=== PATIENT | male | born 1960 | race Caucasian/White ===

== ENCOUNTER 2025-06-01 06:19 | Day surgery (SDC) | payer OTHER, BC ==
[2025-05-26 17:03] VITALS: BMI 27.3
[2025-06-01] MEDS ORDERED: ERYTHROMYCIN 0.5% OPHTHALMIC OINTMENT 3.5 GM TUBE ONE (07:24)
[2025-06-01] MEDS ORDERED: TETRACAINE 0.5% OPHTH SOLN 2 ML BOTTLE ONE (07:25)
[2025-06-01] MEDS ORDERED: LIDOCAINE 1%/EPI 1:100000 (20 ML MULTI DOSE VIAL) ONE (07:25)
[2025-06-01] MEDS ORDERED: BUPIVACAINE HCL/PF 0.5% (5MG/ML) 10 ML VIAL ONE (07:25)
[2025-06-01] MEDS ORDERED: PROPOFOL 40 ML ONE (07:34)
[2025-06-01] MEDS ORDERED: MIDAZOLAM HCL 2 MG/2 ML SINGLE DOSE VIAL ONE (07:34)
[2025-06-01] MEDS ORDERED: ONDANSETRON 4 MG/2 ML VIAL ONE (08:17)
[2025-06-01] MEDS ORDERED: DEXAMETHASONE SOD PHOSPHATE 4 MG/1 ML VIAL ONE (08:17)
[2025-06-01] MEDS ORDERED: ONDANSETRON 4 MG/2 ML VIAL IVPUSH PRN (08:43)
[2025-06-01] MEDS ORDERED: LACTATED RINGERS SOLUTION 1,000 ML IV SCH (08:45)
[2025-06-01 09:35] VITALS: RESP 18
[2025-06-01 10:04] VITALS: TEMP 96.9
[2025-06-01 10:54] VITALS: BP 111/62; PULSE 55
== END 2025-06-01 11:02 | disposition home or self-care (01) ==
LOC: FASU 06:19
PROVIDERS: ATTEND Ophthalmology
PROC: 08Q Eye, Repair (ICD-10-PCS; principal; 2025-06-01 08:02)
DX: H02.102 Unspecified ectropion of right lower eyelid (principal)
CPT/HCPCS: 94760